=== PATIENT | male | born 1970 | race African-American/Black ===

== ENCOUNTER 2022-04-15 22:12 | Emergency (ER) | payer MEDICAID ==
[~2022-04-15] VITALS: Ht 185.4 cm; Wt 120.0 kg
[2022-04-15] MEDS ORDERED: VISCOUS LIDOCAINE 2% 15 ML UDC PO ONE (22:45)
[2022-04-15] MEDS ORDERED: MAGNESIUM/ALUMINUM HYDROXIDE/SIMETHICONE 30ML UDC PO ONE (22:45)
[2022-04-15] MEDS ORDERED: NITROGLYCERIN 0.4MG TABLET SL SL PRN (22:45)
[2022-04-15 23:05] LABS: BASOPHILS % 0.9 % (0.0-2.0); EOSINOPHILS % 2.1 % (0.0-5.0); HEMATOCRIT. 36.5 % (42.0-52.0); HEMOGLOBIN. 12.7 g/dL (14.0-18.0); LYMPHOCYTES % 42.2 % (20.0-50.0); MEAN CORPUSCULAR HEMOGLOBIN 28.7 pg (28.0-32.0); MEAN CORPUSCULAR VOLUME 82.6 fL (80.0-94.0); MEAN PLATELET VOLUME 7.7 fl (7.4-10.4); MONOCYTES % 9.9 % (2.0-8.0); NEUTROPHILS % 44.9 % (40.0-76.0); PLATELET 261 x1000/uL (130-400); RED BLOOD CELL COUNT 4.42 mill/uL (4.7-6.1); RED CELL DISTRIBUTION WIDTH 13.4 % (11.6-14.6)
[2022-04-15 23:08] LABS: CHLORIDE 107 mEq/L (98-107)
[2022-04-16 02:40] VITALS: BP 140/89
== END 2022-04-16 03:10 | disposition left against medical advice (07) ==
LOC: ER 22:12
DX: R07.89 Other chest pain (principal); R73.03 Prediabetes
CPT/HCPCS: 36415; 71045; 80053; 83880; 84484; 85025; 93005; 99285; Z7610